=== PATIENT | female | born 1995 | race Caucasian/White ===

== ENCOUNTER 2017-06-21 22:53 | Emergency (ER) | END 2017-06-22 03:17 | disposition home or self-care (01) ==

== ENCOUNTER 2017-10-17 15:07 | Emergency (ER) | END 2017-10-17 18:01 | disposition home or self-care (01) ==

== ENCOUNTER 2018-11-07 14:14 | Emergency (ER) | payer OTHER ==
[~2018-11-07] VITALS: Wt 60.0 kg
[~2018-11-07 14:14] MED LIST: CEPH-443 PO; CIPR500T4 PO; DICY10SO PO; IBUP-1542 PO; METR500T PO; OFLO5DRO46 LEFT EYE
[2018-11-07 14:18] VITALS: BP 138/78; PULSE 67; RESP 18
--- NOTE | 2018-11-07 14:54 | EN ---
Date/Time of Note Date/Time of Note DATE: 11/07/18 TIME: 14:53 ER Progress Note 23-year-old female presents for abdominal pain for the past 2 days. medical screening exam initiated and labs/imaging tests ordered. Patient will be seen by another provider. ADDIS SUTTON DO Nov 07, 2018 14:54
[2018-11-07] MEDS ORDERED: ONDANSETRON (ODT) 4 MG TAB ODT STA (15:09)
[2018-11-07] MEDS ORDERED: ONDA4TAB14 PO (16:59)
--- NOTE | 2018-11-07 17:10 | ERD ---
ER Documentation Chief Complaint Chief Complaint AP X 2 DAYS HPI 23-year-old female presents to the ED complaining of diffuse abdominal pain with vomiting and diarrhea x1 week. Patient states symptoms started after drinking alcohol the night before. She states she has been having, loose and watery stools for the past one 1 week with abdominal cramping. No blood in stools. This has improved. She also reports a few episodes of nonbilious, nonbloody emesis x2 days. She states symptoms worse with food intake. Denies any recent antibiotics. Denies recent travel. Denies any fevers or chills. No abdominal surgeries. She states her mother has been developing similar symptoms. ROS All systems reviewed and are negative except as per history of present illness. Medications Home Meds Active Scripts Ondansetron (Ondansetron Odt) 4 Mg Tab.rapdis, 4 MG PO Q6H PRN for NAUSEA AND/OR VOMITING, #10 TAB Prov:SUHAIL KINGSTON PA-C 11/07/18 Ofloxacin* (Ocuflox*) 0.3%-5 Ml Ophth Drops, 1 DROP LEFT EYE QID, #1 BOTTLE Prov:FELIPE IRWIN PA-C 10/17/17 Cephalexin* (Keflex*) 500 Mg Capsule, 500 MG PO QID for 7 Days, CAP Prov:FELIPE IRWIN PA-C 10/17/17 Dicyclomine Hcl (DICYCLOMINE HCL) 10 Mg/5 Ml Solution, 10 MG PO Q6, #120 ML Prov:CAROLINE PRO NP 06/22/17 Ibuprofen* (Motrin*) 600 Mg Tab, 600 MG PO Q6H PRN for PAIN AND OR ELEVATED TEMP, #30 TAB Prov:CAROLINE PRO NP 06/22/17 Ciprofloxacin Hcl* (Ciprofloxacin Hcl*) 500 Mg Tablet, 500 MG PO BID for 10 Days, TAB Prov:CAROLINE PRO NP 06/22/17 Metronidazole* (Flagyl*) 500 Mg Tablet, 500 MG PO TID for 10 Days, TAB Prov:CAROLINE PRO NP 06/22/17 Reported Medications [none] Unknown Strength No Conflict Check 06/22/17 Allergies Allergies: Coded Allergies: No Known Allergy (Unverified , 06/21/17) PMhx/Soc History of Surgery: No Anesthesia Reaction: No Hx Neurological Disorder: No Hx Respiratory Disorders: Yes (asthma) Hx Cardiac Disorders: No Hx Psychiatric Problems: No Hx Miscellaneous Medical Probl: No Hx Alcohol Use: No Hx Substance Use: Yes (MJ) Hx Tobacco Use: Yes Smoking Status: Current every day smoker Physical Exam Vitals Vital Signs Date Temp Pulse Resp B/P (MAP) Pulse Ox O2 O2 Flow FiO2 Time Delivery Rate 11/07/18 98.1 67 18 138/78 99 14:18 (98) Physical Exam Const: No acute distress Head: Atraumatic Eyes: Normal Conjunctiva ENT: Normal External Ears, Nose and Mouth. Neck: Full range of motion. No meningismus. Resp: Clear to auscultation bilaterally Cardio: Regular rate and rhythm, no murmurs Abd: Soft, + diffuse abdominal tenderness palpation, hyperactive bowel sounds. Negative McBurney's, negative Soto's, no rebound, no guarding Skin: No petechiae or rashes Back: No midline or flank tenderness Ext: No cyanosis, or edema Neur: Awake and alert Psych: Normal Mood and Affect Result Diagram: 11/07/18 1454 11/07/18 1454 Results 24 hrs Laboratory Tests Test 11/07/18 14:54 11/07/18 15:00 11/07/18 15:34 White Blood Count 6.9 10^3/ul Red Blood Count 4.61 10^6/ul Hemoglobin 13.9 g/dl Hematocrit 40.6 % Mean Corpuscular Volume 88.1 fl Mean Corpuscular Hemoglobin 30.2 pg Mean Corpuscular 34.2 g/dl Hemoglobin Concent Red Cell Distribution Width 13.5 % Platelet Count 295 10^3/UL Mean Platelet Volume 9.8 fl Immature Granulocytes % 0.400 % Neutrophils % 66.3 % Lymphocytes % 24.2 % Monocytes % 7.5 % Eosinophils % 0.9 % Basophils % 0.7 % Nucleated Red Blood Cells % 0.0 /100WBC Immature Granulocytes # 0.030 10^3/ul Neutrophils # 4.6 10^3/ul Lymphocytes # 1.7 10^3/ul Monocytes # 0.5 10^3/ul Eosinophils # 0.1 10^3/ul Basophils # 0.1 10^3/ul Nucleated Red Blood Cells # 0.0 10^3/ul Sodium Level 143 mmol/L Potassium Level 3.8 mmol/L Chloride Level 109 mmol/L Carbon Dioxide Level 26 mmol/L Anion Gap 8 Blood Urea Nitrogen 14 mg/dl Creatinine 0.71 mg/dl Est Glomerular Filtrat > 60 mL/min Rate mL/min Glucose Level 94 mg/dl Calcium Level 9.7 mg/dl Total Bilirubin 1.0 mg/dl Direct Bilirubin 0.00 mg/dl Indirect Bilirubin 1.0 mg/dl Aspartate Amino Transf (AST/SGOT) 18 IU/L Alanine 9 IU/L Aminotransferase (ALT/SGPT) Alkaline Phosphatase 49 IU/L Total Protein 7.7 g/dl Albumin 4.4 g/dl Globulin 3.30 g/dl Albumin/Globulin Ratio 1.33 Lipase 25 U/L Urine Color YELLOW Urine Clarity SLIGHTLY CLOUDY Urine pH 5.0 Urine Specific [place] 1.023 Urine Ketones TRACE mg/dL Urine Nitrite NEGATIVE mg/dL Urine Bilirubin NEGATIVE mg/dL Urine Urobilinogen NEGATIVE mg/dL Urine Leukocyte Esterase NEGATIVE Lorenzo/ul Urine Microscopic RBC > 182 /HPF Urine Microscopic WBC 5 /HPF Urine Squamous Epithelial Cells FEW /HPF Urine Bacteria FEW /HPF Urine Mucus MANY /HPF Urine Hemoglobin 3+ mg/dL Urine Glucose NEGATIVE mg/dL Urine Total Protein NEGATIVE mg/dl Urine Test NEGATIVE POC Beta HCG, Qualitative NEGATIVE Current Medications Medications Dose Sig/Bautista Start Time Status Last (Trade) Ordered Route PRN Stop Time Admin Dose Reason Admin Ondansetron 4 mg ONCE STAT 11/07/18 DC 11/07/18 HCl (Zofran ODT 15:09 11/07/18 15:29 Odt) 15:11 Procedures/MDM LABS & DIAGNOSTIC IMAGING: CBC: no e/o of systemic infection or severe anemia CMP: no e/o severe acidosis, alkalosis, renal failure, diabetic ketoacidosis, liver disease The patient's lipase is normal and indicative of no pancreatitis. Urine: + Hematuria, RBC, consistent with patient being on her menses. hcg: neg ED COURSE: The patient was given ODT Zofran The medication was well tolerated and the patient had market improvement in symptoms. The patient remained stable throughout ED course. MEDICAL DECISION MAKIN-year-old female presents with abdominal pain, vomiting and diarrhea. She has no fever here. Vital signs are normal. Abdominal exam is soft without evidence of peritonitis. Her work-up including CBC, CMP and UA are unremarkable. I suspect her symptoms are likely viral in nature. She felt b luis after ODT Zofran. I do not think she needs any further work-up or advanced imaging at this time. I have low suspicion for dehydration, appendicitis, obstruction or any other acute process. Patient be discharged home with prescription for Zofran. Recommended bland diet and advancement after wards. Strict return precautions were discussed. PRESCRIPTIONS: Zofran SPECIALIST FOLLOW UP RECOMMENDED: None Patient has been advised to follow up with primary care in 1-2 days. Departure Diagnosis: Primary Impression: Gastroenteritis Condition: Stable Patient Instructions: Gastroenteritis, Viral (6Y-Adult) Referrals: COMMUNITY CLINICS YOU HAVE RECEIVED A MEDICAL SCREENING EXAM AND THE RESULTS INDICATE THAT YOU DO NOT HAVE A CONDITION THAT REQUIRES URGENT TREATMENT IN THE EMERGENCY DEPARTMENT. FURTHER EVALUATION AND TREATMENT OF YOUR CONDITION CAN WAIT UNTIL YOU ARE SEEN IN YOUR DOCTORS OFFICE WITHIN THE NEXT 1-2 DAYS. IT IS YOUR RESPONSIBILITY TO MAKE AN APPOINTMENT FOR FOLOW-UP CARE. IF YOU HAVE A PRIMARY DOCTOR --you should call your primary doctor and schedule an appointment IF YOU DO NOT HAVE A PRIMARY DOCTOR YOU CAN CALL OUR PHYSICIAN REFERRAL HOTLINE AT IF YOU CAN NOT AFFORD TO SEE A PHYSICIAN YOU CAN CHOSE FROM THE FOLLOWING [facility] [address] [facility]. [facility] [address] [facility] [address] [facility] [address] [facility]. [facility] [address] [facility]. [facility]. [address] [facility]. [facility] YOU HAVE RECEIVED A MEDICAL SCREENING EXAM AND THE RESULTS INDICATE THAT YOU DO NOT HAVE A CONDITION THAT REQUIRES URGENT TREATMENT IN THE EMERGENCY DEPARTMENT. FURTHER EVALUATION AND TREATMENT OF YOUR CONDITION CAN WAIT UNTIL YOU ARE SEEN IN YOUR DOCTORS OFFICE WITHIN THE NEXT 1-2 DAYS. IT IS YOUR RESPONSIBILITY TO MAKE AN APPOINTMENT FOR FOLOW-UP CARE. IF YOU HAVE A PRIMARY DOCTOR --you should call your primary doctor and schedule and appointment IF YOU DO NOT HAVE A PRIMARY DOCTOR YOU CAN CALL OUR PHYSICIAN REFERRAL HOTLINE AT . IF YOU CAN NOT AFFORD TO SEE A PHYSICIAN YOU CAN CHOSE FROM THE FOLLOWING [facility] INSTITUTIONS: [facility] [address] [place] [address] [facility] [address] [place] [address] [facility] [address] [place] [address] Additional Instructions: Call your primary care doctor TOMORROW for an appointment during the next 2-4 d ays and bring all the information and medications prescribed. If the symptoms get worse and your provider is unavailable, return to the Emergency Department immediately. SUHAIL KINGSTON PA-C Nov 07, 2018 17:09
== END 2018-11-07 17:11 | disposition home or self-care (01) ==
LOC: FTE 14:14
DX: K52.9 Noninfective gastroenteritis and colitis, unspecified (principal); J45.909 Unspecified asthma, uncomplicated; F17.210 Nicotine dependence, cigarettes, uncomplicated
CPT/HCPCS: 80053; 81001; 81025; 83690; 84703; 85025; Z7502; Z7610; 99283

== ENCOUNTER 2018-12-09 18:43 | Emergency (ER) | payer OTHER ==
[~2018-12-09] VITALS: Ht 170.2 cm; Wt 63.0 kg
[~2018-12-09 18:43] MED LIST changes: +ACET325T33 PO; +ONDA4TAB14 PO
[2018-12-09 18:45] VITALS: Ht 170.2 cm; Wt 63.0 kg
--- NOTE | 2018-12-09 19:11 | ERD ---
ER Documentation Chief Complaint Chief Complaint vag bleed; pt stated she is ; LMP a month ago HPI 23-year-old female, presents the emergency department, complaining of vaginal bleeding that is started yesterday. According to the patient, she had a positive test at home 3 days ago. Her last menstrual period was 11/08/2018. Her last visit to the emergency department was on the same day 11/08/2018 and a test done here in the emergency department was negative. ROS All systems reviewed and are negative except as per history of present illness. Medications Home Meds Active Scripts Acetaminophen* (Tylenol*) 325 Mg Tablet, 2 TAB PO Q6 PRN for PAIN AND OR ELEVATED TEMP, #20 TAB Prov:AR ABEBE MD 12/09/18 Ondansetron (Ondansetron Odt) 4 Mg Tab.rapdis, 4 MG PO Q6H PRN for NAUSEA AND/OR VOMITING, #10 TAB Prov:SUHAIL KINGSTON PA-C 11/07/18 Ofloxacin* (Ocuflox*) 0.3%-5 Ml Ophth Drops, 1 DROP LEFT EYE QID, #1 BOTTLE Prov:FELIPE RIWIN PA-C 10/17/17 Cephalexin* (Keflex*) 500 Mg Capsule, 500 MG PO QID for 7 Days, CAP Prov:FELIPE IRWIN PA-C 10/17/17 Dicyclomine Hcl (DICYCLOMINE HCL) 10 Mg/5 Ml Solution, 10 MG PO Q6, #120 ML Prov:CAROLINE PRO NP 06/22/17 Ibuprofen* (Motrin*) 600 Mg Tab, 600 MG PO Q6H PRN for PAIN AND OR ELEVATED T EMP, #30 TAB Prov:CAROLINE PRO NP 06/22/17 Ciprofloxacin Hcl* (Ciprofloxacin Hcl*) 500 Mg Tablet, 500 MG PO BID for 10 Days, TAB Prov:CAROLINE PRO NP 06/22/17 Metronidazole* (Flagyl*) 500 Mg Tablet, 500 MG PO TID for 10 Days, TAB Prov:CAROLINE PRO NP 06/22/17 Reported Medications [none] Unknown Strength No Conflict Check 06/22/17 Allergies Allergies: Coded Allergies: No Known Allergy (Unverified , 06/21/17) PMhx/Soc Medical and Surgical Hx: pt denies Medical Hx, pt denies Surgical Hx History of Surgery: No Anesthesia Reaction: No Hx Neurological Disorder: No Hx Respiratory Disorders: Yes (asthma) Hx Cardiac Disorders: No Hx Psychiatric Problems: No Hx Miscellaneous Medical Probl: No Hx Alcohol Use: No Hx Substance Use: Yes (MJ) Hx Tobacco Use: Yes Smoking Status: Never smoker FmHx Family History: No diabetes, No coronary disease Physical Exam Vitals Vital Signs Date Temp Pulse Resp B/P (MAP) Pulse Ox O2 O2 Flow FiO2 Time Delivery Rate 12/09/18 98.9 76 20 128/84 97 18:45 (99) Physical Exam Const: No acute distress Head: Atraumatic Eyes: Normal Conjunctiva ENT: Normal External Ears, Nose and Mouth. Neck: Full range of motion. No meningismus. Resp: Clear to auscultation bilaterally Cardio: Regular rate and rhythm, no murmurs Abd: Soft, non tender, non distended. Normal bowel sounds Skin: No petechiae or rashes Back: No midline or flank tenderness Ext: No cyanosis, or edema Neur: Awake and alert Psych: Normal Mood and Affect Results 24 hrs Laboratory Tests Test 12/09/18 19:24 POC Beta HCG, Qualitative NEGATIVE Procedures/MDM Vital signs stable. Differential diagnosis considered include UTI, cystitis, , endometriosis, pelvic inflammatory disease, ruptured ovarian cyst, ectopic , appendicitis, kidney stone. Less likely malignancy or acute abdomen but is still a possibility. During the ED course the patient remained stable, no new complaints. Results and clinical impression discussed with the patient who agrees with management. The patient is stable to be treated outpatient and will be discharged home with a Rx for ibuprofen some side effects of prescribed medications (headache, rash, nausea, vomiting, diarrhea, drowsiness, habituation, bleeding, hypertension, interactions with other medications) were reviewed. Follow up with the primary care provider in the next 48h has been recommended. If symptoms persist, worsen or new symptoms develop, then patient should return to the ED immediately. Instructions explained and given directly by me to the patient with acknowledgment and demonstrated understanding. Disclaimer: Inadvertent spelling and grammatical errors are likely due to EHR/dictation software use and do not reflect on the overall quality of patient care. Also, please note that the electronic time recorded on this note does not necessarily reflect the actual time of the patient encounter. Departure Diagnosis: Primary Impression: Vaginal bleeding Additional Impression: Negative test Condition: Stable Additional Instructions: Thank you very much for allowing us to participate in your care. Your health and safety is our top priority at [facility]. The evaluation in the emergency department has been done to rule out an acute emergency. Chronic, [id number] conditions may have not been evaluated; therefore, you need to follow up with a primary care provider in the next 48h. If symptoms persist, worsen or new symptoms develop, then patient should return to the ED immediately. Call your primary care doctor TOMORROW for an appointment during the next 2-4 days and bring all the information provided. Have prescriptions filled and follow precisely the directions on the label. If the symptoms get worse and your provider is unavailable, return to the Emergency Department immediately. AR ABEBE MD Dec 09, 2018 19:11
[2018-12-09 19:45] VITALS: BP 126/80; PULSE 72; RESP 20
== END 2018-12-09 19:46 | disposition home or self-care (01) ==
LOC: FTE 18:43
DX: N93.9 Abnormal uterine and vaginal bleeding, unspecified (principal)
CPT/HCPCS: 81025; Z7502; 99282